=== PATIENT | female | born 1950 | race Caucasian/White ===

== ENCOUNTER 2017-09-23 07:13 | Inpatient (IN) | payer MEDICARE, BC ==
[2017-09-23] MEDS ORDERED: methylPREDNISolone SOD SUCCI 125 MG/2 ML VIAL IV STA (07:36)
[2017-09-23] MEDS ORDERED: SODIUM CHLORIDE 0.9% 500 ML IV STA (07:36)
[2017-09-23] MEDS ORDERED: ALBUTEROL NEBULIZED 2.5 MG/3 ML INHALATION STA (07:36)
--- NOTE | 2017-09-23 07:40 | ED ---
General Adult HPI - General Chief complaint: Shortness of Breath Stated complaint: SOB Time Seen by Provider: 09/23/17 07:13 Source: patient, RN notes reviewed Mode of arrival: wheelchair Limitations: no limitations - History of Present Illness Initial comments: This is a 67-year-old female who has a past medical history significant for asthma and continues to smoke. Patient comes in today stating she's had some difficulty breathing shortness of breath over the last few days. Patient states she's also coughing quite a bit. Patient states her has had similar symptoms. But his shortness of breath isn't as bad. Patient denies any chest pain just chest tightness. Patient states she's taken some realtors at home but they have not helped. Patient denies any known fever but she does feel warm. Patient denies any abdominal pain. Patient denies nausea vomiting diarrhea. Patient denies lightheadedness or dizziness. Patient denies any headache. Eyes any leg swelling or calf tenderness. - Related Data Home Medications Medication Instructions Recorded Confirmed Aspirin 2 tab PO DAILY 09/18/13 09/18/13 Fluticasone Propionate [Flonase] 2 spray EA NOSTRIL DAILY 09/18/13 09/18/13 Lovastatin [Mevacor] 40 mg PO DAILY 09/18/13 09/18/13 Montelukast Sodium [Singulair] 10 mg PO DAILY 09/18/13 09/19/13 PARoxetine HCL [Paxil] 20 mg PO DAILY 09/18/13 09/18/13 amLODIPine BESYLATE/BENAZEPRIL 1 each PO DAILY 09/18/13 09/18/13 [Amlodipine-Benazepril 5-20 mg] Allergies Allergy/AdvReac Type Severity Reaction Status Date / Time latex Allergy Rash/Hives Verified 09/23/17 07:18 peanut Allergy Unknown Verified 09/23/17 07:18 Penicillins Allergy Rash/Hives Verified 09/23/17 07:18 Sulfa (Sulfonamide Allergy Rash/Hives Verified 09/23/17 07:18 Antibiotics) brazil nuts Allergy Anaphylaxis Uncoded 09/23/17 07:18 Review of Systems ROS Statement: Those systems with pertinent positive or pertinent negative responses have been documented in the HPI. ROS Other: All systems not noted in ROS Statement are negative. Past Medical History Past Medical History: Cancer, Hyperlipidemia, Hypertension, Skin Disorder Additional Past Medical History / Comment(s): BREAST CA-2007,CAROTID STENOSIS History of Any Multi-Drug Resistant Organisms: None Reported Past Surgical History: Cholecystectomy Additional Past Surgical History / Comment(s): CAROTID ENDARTERECTOMY, LUMPECTOMY RT BREAST,ORIF RT ANKLE Past Anesthesia/Blood Transfusion Reactions: No Reported Reaction Past Psychological History: Anxiety Smoking Status: Current some day smoker Past Alcohol Use History: Rare Past Drug Use History: None Reported General Exam - General Exam Comments Initial Comments: GENERAL: Patient is well-developed and well-nourished. Patient is nontoxic and well- hydrated and is in mild distress. ENT: Neck is soft and supple. No significant lymphadenopathy is noted. Oropharynx is clear. Moist mucous membranes. Neck has full range of motion without eliciting any pain. EYES: The sclera were anicteric and conjunctiva were pink and moist. Extraocular movements were intact and pupils were equal round and reactive to light. Eyelids were unremarkable. PULMONARY: Patient is diffusely wheezing CARDIOVASCULAR: There is a regular rate and rhythm without any murmurs gallops or rubs. ABDOMEN: Soft and nontender with normal bowel sounds. No palpable organomegaly was noted. There is no palpable pulsatile mass. SKIN: Skin is clear with no lesions or rashes and otherwise unremarkable. NEUROLOGIC: Patient is alert and oriented x3. Cranial nerves II through XII are grossly intact. Motor and sensory are also intact. Normal speech, volume and content. Symmetrical smile. MUSCULOSKELETAL: Normal extremities with adequate strength and full range of motion. No lower extremity swelling or edema. No calf tenderness. LYMPHATICS: No significant lymphadenopathy is noted PSYCHIATRIC: Normal psychiatric evaluation. Limitations: no limitations Course Vital Signs 09/23/17 09/23/17 09/23/17 07:15 08:17 08:26 Temperature 98.3 F Pulse Rate 109 H 95 92 Respiratory 20 Rate Blood Pressure 146/63 O2 Sat by Pulse 89 L Oximetry Medical Decision Making - Medical Decision Making EKG shows normal sinus rhythm at 97 bpm DE interval 132 QRS is 84 QT interval 354 QTC is 449. Patient's EKG does show some ST segment depression slightly in the precordial leads V3 through V6 this was not seen on an old EKG. X-ray shows no acute abnormality. Patient got 2 breathing treatments consecutively but was still wheezing diffusely. Patient received Solu-Medrol 125 mg. I spoke with Dr. Perez I admitted the patient and I continued Solu-Medrol and albuterol the floor. Anytime the patient was off of oxygen patient did drop her pulse ox down into the mid 80s. - Lab Data Result diagrams: 09/23/17 07:51 09/23/17 07:51 Lab Results 09/23/17 09/23/17 09/23/17 Range/Units 07:51 07:51 07:51 WBC 9.9 (3.8-10.6) k/uL RBC 4.58 (3.80-5.40) m/uL Hgb 14.5 (11.4-16.0) gm/dL Hct 42.8 (34.0-46.0) % MCV 93.7 (80.0-100.0) fL MCH 31.6 (25.0-35.0) pg MCHC 33.7 (31.0-37.0) g/dL RDW 12.4 (11.5-15.5) % Plt Count 326 (150-450) k/uL Neutrophils % 82 % Lymphocytes % 6 % Monocytes % 5 % Eosinophils % 7 % Basophils % 1 % Neutrophils # 8.1 H (1.3-7.7) k/uL Lymphocytes # 0.6 L (1.0-4.8) k/uL Monocytes # 0.5 (0-1.0) k/uL Eosinophils # 0.7 (0-0.7) k/uL Basophils # 0.1 (0-0.2) k/uL PT (9.0-12.0) sec INR (<1.2) APTT (22.0-30.0) sec Sodium 148 H (137-145) mmol/L Potassium 4.6 (3.5-5.1) mmol/L Chloride 110 H (98-107) mmol/L Carbon Dioxide 22 (22-30) mmol/L Anion Gap 16 mmol/L BUN 10 (7-17) mg/dL Creatinine 0.58 (0.52-1.04) mg/dL Est GFR (CKD-EPI)AfAm >90 (>60 ml/min/1.73 sqM) Est GFR (CKD-EPI)NonAf >90 (>60 ml/min/1.73 sqM) Glucose 124 H (74-99) mg/dL Calcium 9.0 (8.4-10.2) mg/dL Magnesium 1.9 (1.6-2.3) mg/dL Total Bilirubin 0.5 (0.2-1.3) mg/dL AST 26 (14-36) U/L ALT 31 (9-52) U/L Alkaline Phosphatase 134 H (38-126) U/L Total Creatine Kinase 84 (30-135) U/L CK-MB (CK-2) 2.0 (0.0-2.4) ng/mL CK-MB (CK-2) Rel Index 2.4 Troponin I <0.012 (0.000-0.034) ng/mL Total Protein 6.7 (6.3-8.2) g/dL Albumin 4.1 (3.5-5.0) g/dL 09/23/17 Range/Units 07:51 WBC (3.8-10.6) k/uL RBC (3.80-5.40) m/uL Hgb (11.4-16.0) gm/dL Hct (34.0-46.0) % MCV (80.0-100.0) fL MCH (25.0-35.0) pg MCHC (31.0-37.0) g/dL RDW (11.5-15.5) % Plt Count (150-450) k/uL Neutrophils % % Lymphocytes % % Monocytes % % Eosinophils % % Basophils % % Neutrophils # (1.3-7.7) k/uL Lymphocytes # (1.0-4.8) k/uL Monocytes # (0-1.0) k/uL Eosinophils # (0-0.7) k/uL Basophils # (0-0.2) k/uL PT 9.6 (9.0-12.0) sec INR 1.0 (<1.2) APTT 19.8 L (22.0-30.0) sec Sodium (137-145) mmol/L Potassium (3.5-5.1) mmol/L Chloride (98-107) mmol/L Carbon Dioxide (22-30) mmol/L Anion Gap mmol/L BUN (7-17) mg/dL Creatinine (0.52-1.04) mg/dL Est GFR (CKD-EPI)AfAm (>60 ml/min/1.73 sqM) Est GFR (CKD-EPI)NonAf (>60 ml/min/1.73 sqM) Glucose (74-99) mg/dL Calcium (8.4-10.2) mg/dL Magnesium (1.6-2.3) mg/dL Total Bilirubin (0.2-1.3) mg/dL AST (14-36) U/L ALT (9-52) U/L Alkaline Phosphatase (38-126) U/L Total Creatine Kinase (30-135) U/L CK-MB (CK-2) (0.0-2.4) ng/mL CK-MB (CK-2) Rel Index Troponin I (0.000-0.034) ng/mL Total Protein (6.3-8.2) g/dL Albumin (3.5-5.0) g/dL Critical Care Time Critical Care Time: Yes Total Critical Care Time: 35 Disposition Clinical Impression: COPD with acute exacerbation Disposition: ADMITTED IP TO THIS HOSP Referrals: Radha Watkins DO [Primary Care Provider] - 1-2 days Time of Disposition: 09:13
[2017-09-23 08:04] LABS: Basophils # (A) 0.1 k/uL (0-0.2); Basophils % (A) 1 %; Eosinophils # (A) 0.7 k/uL (0-0.7); Eosinophils % (A) 7 %; HCT 42.8 % (34.0-46.0); HGB 14.5 gm/dL (11.4-16.0); Lymphocytes # (A) 0.6 k/uL (1.0-4.8); Lymphocytes % (A) 6 %; MCH 31.6 pg (25.0-35.0); MCHC 33.7 g/dL (31.0-37.0); MCV 93.7 fL (80.0-100.0); Mean Platelet Volume 6.9; Monocytes # (A) 0.5 k/uL (0-1.0); Monocytes % (A) 5 %; Neutrophils # (A) 8.1 k/uL (1.3-7.7); Neutrophils % (A) 82 %; Platelet Count 326 k/uL (150-450); RBC 4.58 m/uL (3.80-5.40); RDW 12.4 % (11.5-15.5); WBC 9.9 k/uL (3.8-10.6)
[2017-09-23 08:18] LABS: Albumin 4.1 g/dL (3.5-5.0); Anion Gap 16 mmol/L; Carbon Dioxide 22 mmol/L (22-30); Chloride 110 mmol/L (98-107); Glucose 124 mg/dL (74-99); Sodium 148 mmol/L (137-145); Total Bilirubin 0.5 mg/dL (0.2-1.3); Total Protein 6.7 g/dL (6.3-8.2)
[2017-09-23 08:22] LABS: ALT 31 U/L (9-52); AST 26 U/L (14-36); Alkaline Phosphatase 134 U/L (38-126); Blood Urea Nitrogen 10 mg/dL (7-17); Magnesium 1.9 mg/dL (1.6-2.3); Potassium 4.6 mmol/L (3.5-5.1)
--- NOTE | 2017-09-23 08:24 | XR ---
EXAMINATION TYPE: XR chest 2V DATE OF EXAM: 09/23/2017 HISTORY: difficulty breathing. REFERENCE: NONE. FINDINGS: The heart is minimally enlarged. The lungs are clear. Pleural spaces are clear. IMPRESSION: MILD CARDIOMEGALY.
[2017-09-23 08:36] LABS: Prothrombin Time 9.6 sec (9.0-12.0)
[2017-09-23 08:37] LABS: Creatine Kinase 84 U/L (30-135)
[2017-09-23 08:39] LABS: Partial Thromboplastin Time 19.8 sec (22.0-30.0)
[2017-09-23 08:49] LABS: Troponin I <0.012 ng/mL (0.000-0.034)
[2017-09-23] MEDS: hydrALAZINE HCL 20 MG/ML 1 ML VIAL IVP STA ×2 (09:42→11:00)
[2017-09-23] MEDS: ACETAMINOPHEN TAB 325 MG TAB PO PRN (11:54)
[2017-09-23] MEDS: methylPREDNISolone SOD SUCCI 125 MG/2 ML VIAL IV SCH ×2 (11:55→18:17)
[2017-09-23 12:14] VITALS: BMI 35.6
[2017-09-23] MEDS: IPRATROPIUM-ALBUTEROL 3 ML NEB INHALATION PRN ×3 (12:34→20:09)
--- NOTE | 2017-09-23 16:38 | P.HPIM ---
History of Present Illness H&P Date: 09/23/17 Chief Complaint: Shortness of breath Anthony Llamas is a 67-year-old female patient of [facility] who presented to [facility] emergency room with a chief complaint of worsening shortness of breath, patient was having wheezing and cough for the last several days she used her inhaler without significant relief her symptoms were worsening and she decided to come to emergency room. Patient has a known history of asthma, she was also recently diagnosed with COPD, she is a smoker, she states she never smoked as a teenager she started smoking when she started working, she quit smoking when she was having her children, she was smoking up until a few days ago, she has history of chronic sinusitis was previous history of sinus surgery, she denies any previous history of pneumonia. Patient denies any other medical problems she denies having any history of cardiac disease, no history of CHF or coronary artery disease. Past Medical History Past Medical History: Cancer, Hyperlipidemia, Hypertension, Skin Disorder Additional Past Medical History / Comment(s): BREAST CA-2006,CAROTID STENOSIS History of Any Multi-Drug Resistant Organisms: None Reported Past Surgical History: Cholecystectomy Additional Past Surgical History / Comment(s): CAROTID ENDARTERECTOMY, LUMPECTOMY RT BREAST,ORIF RT ANKLE Past Anesthesia/Blood Transfusion Reactions: No Reported Reaction Past Psychological History: Anxiety Smoking Status: Former smoker Past Alcohol Use History: Rare Past Drug Use History: None Reported - Past Family History Daughter(s) Family Medical History: Cancer Father Family Medical History: Congestive Heart Failure (CHF) Medications and Allergies Home Medications Medication Instructions Recorded Confirmed Type Aspirin 325 mg PO DAILY@159909/18/13 09/23/17 History Fluticasone Propionate [Flonase] 2 spray EA NOSTRIL DAILY 09/18/13 09/23/17 History PARoxetine HCL [Paxil] 20 mg PO DAILY@159909/18/13 09/23/17 History amLODIPine BESYLATE/BENAZEPRIL 1 cap PO DAILY@159909/18/13 09/23/17 History [Amlodipine-Benazepril 5-20 mg] Albuterol Sulfate [Proair Hfa] 1 - 2 puff INHALATION RT-Q6H PRN 09/23/17 History Atorvastatin [Lipitor] 80 mg PO DAILY@159909/23/17 09/23/17 History Loratadine [Claritin] 10 mg PO DAILY@1600 09/23/17 09/23/17 History busPIRone HCL 10 mg PO DAILY@1600 09/23/17 09/23/17 History Allergies Allergy/AdvReac Type Severity Reaction Status Date / Time latex Allergy Rash/Hives Verified 09/23/17 11:36 Penicillins Allergy Rash/Hives Verified 09/23/17 11:36 Sulfa (Sulfonamide Allergy Rash/Hives Verified 09/23/17 11:36 Antibiotics) brazil nuts Allergy Anaphylaxis Uncoded 09/23/17 09:32 Physical Exam Vitals: Vital Signs Temp Pulse Pulse Resp BP BP Pulse Ox 09/23/17 15:48 102 H 09/23/17 15:36 100 09/23/17 14:26 98.5 F 100 18 143/66 95 09/23/17 12:45 103 H 09/23/17 12:34 103 H 93 L 09/23/17 11:25 98.7 F 106 H 18 174/80 92 L 09/23/17 10:12 98.8 F 98 18 137/64 98 09/23/17 09:38 100 20 173/83 98 09/23/17 09:26 97 18 166/72 97 09/23/17 08:26 92 09/23/17 08:17 95 09/23/17 07:15 98.3 F 109 H 20 146/63 89 L Intake and Output 09/23/17 09/23/17 09/23/17 06:59 14:59 22:59 Other: Weight 91.399 kg In general patient is alert and oriented 3 in no apparent distress HEENT head normocephalic and atraumatic Neck is supple no JVD no goiter no lymphadenopathy Chest exam reveals a few scattered crackles wheezes and expiratory wheezing Cardiac exam reveals regular heart sounds no gallops no murmurs Abdomen is soft nontender no organomegaly with normal bowel sounds Extremity exam reveals no edema no cyanosis or clubbing Results CBC & Chem 7: 09/23/17 07:51 09/23/17 07:51 Labs: Abnormal Lab Results - Last 24 Hours (Table) 09/23/17 09/23/17 09/23/17 Range/Units 07:51 07:51 07:51 Neutrophils # 8.1 H (1.3-7.7) k/uL Lymphocytes # 0.6 L (1.0-4.8) k/uL APTT 19.8 L (22.0-30.0) sec Sodium 148 H (137-145) mmol/L Chloride 110 H (98-107) mmol/L Glucose 124 H (74-99) mg/dL Alkaline Phosphatase 134 H (38-126) U/L Thrombosis Risk Factor Assmnt - Choose All That Apply Any of the Below Risk Factors Present?: Yes Each Factor Represents 1 point: Abnormal pulmonary function (COPD) Each Risk Factor Represents 2 Points: Age 61-74 years Thrombosis Risk Factor Assessment Total Risk Factor Score: 3 Thrombosis Risk Factor Assessment Level: Moderate Risk Assessment and Plan Plan: #1 acute asthma exacerbation #2 acute exacerbation of chronic obstructive pulmonary disease #3 tobacco abuse, patient was counseled to quit #4 acute purulent bronchitis #5 underlying history of hyperlipidemia #6 underlying history of depression and anxiety #7 underlying history of hypertension #8 for DVT prophylaxis patient will be started on Lovenox 40 mg subcu, for GI prophylaxis she will be started on Pepcid Home medications reviewed and reordered Continue IV steroids, add IV Rocephin Will follow in a.m.
[2017-09-23] MEDS: AZITHROMYCIN 500 MG in SODIUM CHLORIDE 0.9% 250 ML IVPB SCH (18:16)
[2017-09-23] MEDS: ENOXAPARIN 40 MG/0.4 ML SYRINGE SQ SCH (18:17)
[2017-09-23] MEDS: FAMOTIDINE 20 MG TAB PO SCH (18:17)
[2017-09-24] MEDS: IPRATROPIUM-ALBUTEROL 3 ML NEB INHALATION PRN ×5 (00:15→19:31)
[2017-09-24] MEDS: methylPREDNISolone SOD SUCCI 125 MG/2 ML VIAL IV SCH ×5 (06:09→23:35)
[2017-09-24] MEDS: FLUTICASONE 50MCG/SPRAY NASAL 16GM EA NOSTRIL SCH (07:31)
[2017-09-24] MEDS: ENOXAPARIN 40 MG/0.4 ML SYRINGE SQ SCH (07:31)
[2017-09-24] MEDS: FAMOTIDINE 20 MG TAB PO SCH (07:31)
[2017-09-24] MEDS: AZITHROMYCIN 500 MG in SODIUM CHLORIDE 0.9% 250 ML IVPB SCH (07:31)
[2017-09-24 07:57] LABS: Basophils % (A) 0 %; Eosinophils % (A) 0 %; HCT 40.2 % (34.0-46.0); Lymphocytes # (A) 0.8 k/uL (1.0-4.8); Lymphocytes % (A) 5 %; MCH 30.3 pg (25.0-35.0); MCHC 32.3 g/dL (31.0-37.0); MCV 93.9 fL (80.0-100.0); Mean Platelet Volume 7.2; Monocytes # (A) 0.7 k/uL (0-1.0); Monocytes % (A) 4 %; Neutrophils % (A) 90 %; Platelet Count 386 k/uL (150-450); RBC 4.28 m/uL (3.80-5.40); RDW 12.5 % (11.5-15.5); WBC 16.6 k/uL (3.8-10.6)
[2017-09-24 08:12] LABS: ALT 30 U/L (9-52); AST 20 U/L (14-36); Albumin 3.7 g/dL (3.5-5.0); Alkaline Phosphatase 103 U/L (38-126); Anion Gap 14 mmol/L; Blood Urea Nitrogen 19 mg/dL (7-17); Calcium 9.5 mg/dL (8.4-10.2); Carbon Dioxide 21 mmol/L (22-30); Chloride 107 mmol/L (98-107); Glucose 122 mg/dL (74-99); Potassium 4.4 mmol/L (3.5-5.1); Sodium 142 mmol/L (137-145); Total Bilirubin 0.2 mg/dL (0.2-1.3); Total Protein 6.3 g/dL (6.3-8.2)
--- NOTE | 2017-09-24 12:39 | P.CNPUL ---
History of Present Illness Consult date: 09/24/17 Reason for consult: dyspnea, cough, COPD, hypoxemia Chief complaint: Shortness of breath History of present illness: Pulmonary consultation dated 09/24/2017 67-year-old female with a history of some significant tobacco use. The patient sees Dr. Radha Watkins as a primary. The patient has never seen a lung doctor has no diagnosis of chronic lung disease. She is a heavy smoker. Likely she does have COPD. The patient is on aspirin Flonase nasal spray Mevacor Singulair Paxil and a amlodipine/benazepril combination. The patient comes to the ER with complaints of increasing shortness of breath chest tightness wheezing and cough. Coughing up some phlegm. Very very short of breath. Very congested. The going on for at least 3 or 4 days prior to admission. Denies any fever or chills. No nausea vomiting or diarrhea. No chest pain or chest discomfort. Review of Systems A 12 point review of system is positive for shortness of breath chest tightness wheezing cough chest congestion and mild phlegm production. Past Medical History Past Medical History: Cancer, Hyperlipidemia, Hypertension, Skin Disorder Additional Past Medical History / Comment(s): BREAST CA-2006,CAROTID STENOSIS History of Any Multi-Drug Resistant Organisms: None Reported Past Surgical History: Cholecystectomy Additional Past Surgical History / Comment(s): CAROTID ENDARTERECTOMY, LUMPECTOMY RT BREAST,ORIF RT ANKLE Past Anesthesia/Blood Transfusion Reactions: No Reported Reaction Past Psychological History: Anxiety Smoking Status: Former smoker Past Alcohol Use History: Rare Past Drug Use History: None Reported - Past Family History Daughter(s) Family Medical History: Cancer Father Family Medical History: Congestive Heart Failure (CHF) Medications and Allergies Home Medications Medication Instructions Recorded Confirmed Type Aspirin 325 mg PO DAILY@159909/18/13 09/23/17 History Fluticasone Propionate [Flonase] 2 spray EA NOSTRIL DAILY 09/18/13 09/23/17 History PARoxetine HCL [Paxil] 20 mg PO DAILY@159909/18/13 09/23/17 History amLODIPine BESYLATE/BENAZEPRIL 1 cap PO DAILY@159909/18/13 09/23/17 History [Amlodipine-Benazepril 5-20 mg] Albuterol Sulfate [Proair Hfa] 1 - 2 puff INHALATION RT-Q6H PRN 05/05/18 05/05/ 18 History Atorvastatin [Lipitor] 80 mg PO DAILY@1600 09/23/17 09/23/17 History Loratadine [Claritin] 10 mg PO DAILY@1600 09/23/17 09/23/17 History busPIRone HCL 10 mg PO DAILY@1600 09/23/17 09/23/17 History Allergies Allergy/AdvReac Type Severity Reaction Status Date / Time latex Allergy Rash/Hives Verified 09/23/17 11:36 Penicillins Allergy Rash/Hives Verified 09/23/17 11:36 Sulfa (Sulfonamide Allergy Rash/Hives Verified 09/23/17 11:36 Antibiotics) brazil nuts Allergy Anaphylaxis Uncoded 09/23/17 09:32 Physical Exam Osteopathic Statement: *. No significant issues noted on an osteopathic structural exam other than those noted in the History and Physical/Consult. Vitals: Vital Signs Temp Pulse Pulse Resp BP Pulse Ox 09/24/17 10:17 115 H 84 L 09/24/17 10:16 98 95 09/24/17 08:27 102 H 09/24/17 08:17 98 98 09/24/17 06:52 98.4 F 92 18 123/63 94 L 09/24/17 00:27 103 H 09/24/17 00:17 101 H 09/23/17 23:55 18 09/23/17 23:00 98.3 F 82 18 143/84 96 09/23/17 20:22 102 H 09/23/17 20:10 101 H 09/23/17 15:48 102 H 09/23/17 15:36 100 09/23/17 14:26 98.5 F 100 18 143/66 95 09/23/17 12:45 103 H 09/23/17 12:34 103 H 93 L Intake and Output 09/23/17 09/24/17 09/24/17 22:59 06:59 14:59 Intake Total 970 Balance 970 Intake: Intake, IV Titration 250 Amount Azithromycin 500 mg In 250 Sodium Chloride 0.9% 250 ml @ 125 mls/hr IVPB DAILY [facility] Rx#:[id number] Oral 720 Other: Voiding Method Toilet Toilet # Voids 1 Weight 91.399 kg No acute distress, oriented 3. The patient is emotional, nasal O2 in place. HEENT examination is grossly unremarkable. Mucous membranes are moist. No oral lesions. Neck supple. Full range of motion. No adenopathy thyromegaly or neck vein distention. Cardiovascular examination reveals regular rhythm rate. S1-S2 normal. No S3 or S4. No discernible murmur noted. Lungs reveal diffuse bilateral expiratory wheezes. Breath sounds are diminished. There is prolongation on forced maneuver. Abdomen soft bowel sounds are heard. No masses or tenderness. Extremities are intact. No cyanosis clubbing or edema. Skin is without rash or lesion. Neurologic examination is brief but nonfocal. Results - Laboratory Findings CBC and BMP: 09/24/17 07:20 09/24/17 07:20 PT/INR, D-dimer PT 9.6 sec (9.0-12.0) 09/23/17 07:51 INR 1.0 (<1.2) 09/23/17 07:51 Abnormal lab findings: Abnormal Labs 09/23/17 09/23/17 09/23/17 07:51 07:51 07:51 WBC Neutrophils # 8.1 H Lymphocytes # 0.6 L APTT 19.8 L Sodium 148 H Chloride 110 H Carbon Dioxide BUN Glucose 124 H Alkaline Phosphatase 134 H 09/24/17 09/24/17 07:20 07:20 WBC 16.6 H Neutrophils # 15.0 H Lymphocytes # 0.8 L APTT Sodium Chloride Carbon Dioxide 21 L BUN 19 H Glucose 122 H Alkaline Phosphatase - Diagnostic Findings Chest x-ray: image reviewed (Labs x-rays and medications are reviewed.) Assessment and Plan Assessment: Assessment COPD exacerbation complicated by purulent tracheobronchitis. Chest x-ray is clear for any acute infiltrate. There is mild cardiomegaly. History of heavy tobacco use and nicotine addiction. The patient stopped smoking one week ago. History of hyperlipidemia History of hypertension Previous carotid endarterectomy. Carotid artery stenosis History of breast cancer, 2007 Status post lumpectomy Plan: Plan dated 09/24/2017 The patient's medications are reviewed. We'll make sure that she is on appropriate medications for her COPD exacerbation. In addition, we'll make sure she is on systemic corticosteroids a long-acting beta agonist and inhaled corticosteroids. In addition a short acting beta agonists in short acting muscarinic antagonist would be appropriate. An oral antibiotic would also be appropriate. We'll continue to follow. She'll need outpatient evaluation with a PFT. I did give her my number. Time with Patient: Greater than 30
--- NOTE | 2017-09-24 13:25 | P.PN ---
Subjective Progress Note Date: 09/24/17 Anthony Llamas is a 67-year-old female patient of [facility] who presented to [facility] emergency room with a chief complaint of worsening shortness of breath, patient was having wheezing and cough for the last several days she used her inhaler without significant relief her symptoms were worsening and she decided to come to emergency room. Patient has a known history of asthma, she was also recently diagnosed with COPD, she is a smoker, she states she never smoked as a teenager she started smoking when she started working, she quit smoking when she was having her children, she was smoking up until a few days ago, she has history of chronic sinusitis was previous history of sinus surgery, she denies any previous history of pneumonia. Patient denies any other medical problems she denies having any history of cardiac disease, no history of CHF or coronary artery disease. On 09/24/2017 patient is alert and oriented 3 in no apparent distress she reports improvement in her shortness of breath and cough, she is complaining of feeling jittery and unable to sleep, she denies any fever or chills no headache no dizziness no chest pain no nausea or vomiting no abdominal pain no diarrhea and no urinary symptoms. Objective - Vital Signs Vital signs: Vital Signs Temp 98.4 F 09/24/17 06:52 Pulse 102 H 09/24/17 13:05 Resp 18 09/24/17 06:52 BP 123/63 09/24/17 06:52 Pulse Ox 84 L 09/24/17 10:17 Intake & Output 09/23/17 09/24/17 09/24/17 18:59 06:59 18:59 Intake Total 970 Balance 970 Weight 91.399 kg 91.399 kg Intake: Intake, IV Titration 250 Amount Azithromycin 500 mg In 250 Sodium Chloride 0.9% 250 ml @ 125 mls/hr IVPB DAILY [facility] Rx#:[id number] Oral 720 Other: Voiding Method Toilet Toilet Toilet # Voids 3 1 - Exam In general patient is alert and oriented 3 in no apparent distress HEENT head normocephalic and atraumatic Neck is supple no JVD no goiter no lymphadenopathy Chest exam reveals a few scattered crackles wheezes and expiratory wheezing Cardiac exam reveals regular heart sounds no gallops no murmurs Abdomen is soft nontender no organomegaly with normal bowel sounds Extremity exam reveals no edema no cyanosis or clubbing - Labs CBC & Chem 7: 09/24/17 07:20 09/24/17 07:20 Labs: Abnormal Lab Results - Last 24 Hours (Table) 09/24/17 09/24/17 Range/Units 07:20 07:20 WBC 16.6 H (3.8-10.6) k/uL Neutrophils # 15.0 H (1.3-7.7) k/uL Lymphocytes # 0.8 L (1.0-4.8) k/uL Carbon Dioxide 21 L (22-30) mmol/L BUN 19 H (7-17) mg/dL Glucose 122 H (74-99) mg/dL Microbiology - Last 24 Hours (Table) 09/23/17 07:51 Blood Culture - Preliminary Blood No Growth after 24 hours Assessment and Plan Plan: #1 acute asthma exacerbation #2 acute exacerbation of chronic obstructive pulmonary disease #3 tobacco abuse, patient was counseled to quit #4 acute purulent bronchitis #5 underlying history of hyperlipidemia #6 underlying history of depression and anxiety #7 underlying history of hypertension #8 for DVT prophylaxis patient will be started on Lovenox 40 mg subcu, for GI prophylaxis she will be started on Pepcid Home medications reviewed and reordered Continue IV steroids, patient is ALLERGIC to penicillin she was started on Zithromax Will follow in a.m.
[2017-09-24] MEDS: ACETAMINOPHEN TAB 325 MG TAB PO PRN (15:00)
[2017-09-24] MEDS: busPIRone HCl 10 MG TAB PO SCH (15:04)
[2017-09-24] MEDS: ATORVASTATIN 80 MG TAB PO SCH (15:04)
[2017-09-24] MEDS: amLODIPine 5 MG TAB PO SCH (15:04)
[2017-09-24] MEDS: ASPIRIN 325 MG TAB PO SCH (15:04)
[2017-09-24] MEDS: LISINOPRIL 20 MG TAB PO SCH (15:04)
[2017-09-24] MEDS: LORATADINE 10 MG TAB PO SCH (15:05)
[2017-09-24] MEDS: PARoxetine 20 MG TAB PO SCH (15:05)
[2017-09-24] MEDS ORDERED: BENAZEPRIL PO SCH (16:00)
[2017-09-24] MEDS ORDERED: [UNRECOGNIZED DRUG - OTHER] PO SCH (16:00)
[2017-09-24] MEDS ORDERED: AMLODIPINE BESYLATE PO SCH (16:00)
[2017-09-24 16:53] LABS: Glucose,Whole Blood 158 mg/dL (75-99)
[2017-09-24] MEDS: INSULIN ASPART 100 UNIT/ML 1 ML 10 ML VIAL SQ SCH ×2 (17:40→20:14)
[2017-09-24] MEDS: BUDESONIDE 1 MG/2 ML NEBU INHALATION SCH (19:31)
[2017-09-24] MEDS: FORMOTEROL FUMARATE 20 MCG/2 ML NEBU INHALATION SCH (19:31)
[2017-09-24 20:05] LABS: Glucose,Whole Blood 174 mg/dL (75-99)
[2017-09-24] MEDS: ALPRAZolam 0.25 MG TAB PO PRN (20:18)
[2017-09-25] MEDS: methylPREDNISolone SOD SUCCI 125 MG/2 ML VIAL IV SCH ×3 (05:59→18:20)
[2017-09-25 06:48] LABS: Glucose,Whole Blood 136 mg/dL (75-99)
[2017-09-25] MEDS: FORMOTEROL FUMARATE 20 MCG/2 ML NEBU INHALATION SCH ×2 (07:12→21:00)
[2017-09-25] MEDS: IPRATROPIUM-ALBUTEROL 3 ML NEB INHALATION PRN ×2 (07:12→11:10)
[2017-09-25] MEDS: BUDESONIDE 1 MG/2 ML NEBU INHALATION SCH ×2 (07:12→21:00)
[2017-09-25] MEDS: ENOXAPARIN 40 MG/0.4 ML SYRINGE SQ SCH (08:33)
[2017-09-25] MEDS: FLUTICASONE 50MCG/SPRAY NASAL 16GM EA NOSTRIL SCH (08:34)
[2017-09-25] MEDS: FAMOTIDINE 20 MG TAB PO SCH (08:34)
[2017-09-25] MEDS: AZITHROMYCIN 500 MG TAB PO SCH (08:34)
[2017-09-25] MEDS: ACETAMINOPHEN TAB 325 MG TAB PO PRN ×2 (08:37→15:12)
[2017-09-25] MEDS: INSULIN ASPART 100 UNIT/ML 1 ML 10 ML VIAL SQ SCH ×4 (08:39→20:05)
[2017-09-25 10:13] LABS: Basophils % (A) 0 %; Eosinophils % (A) 0 %; HCT 39.9 % (34.0-46.0); HGB 13.2 gm/dL (11.4-16.0); Lymphocytes # (A) 0.7 k/uL (1.0-4.8); Lymphocytes % (A) 5 %; MCH 31.3 pg (25.0-35.0); MCHC 33.1 g/dL (31.0-37.0); MCV 94.6 fL (80.0-100.0); Mean Platelet Volume 6.6; Monocytes # (A) 0.4 k/uL (0-1.0); Monocytes % (A) 2 %; Neutrophils # (A) 15.1 k/uL (1.3-7.7); Neutrophils % (A) 93 %; Platelet Count 408 k/uL (150-450); RBC 4.22 m/uL (3.80-5.40); RDW 12.7 % (11.5-15.5); WBC 16.2 k/uL (3.8-10.6)
[2017-09-25 10:27] LABS: ALT 36 U/L (9-52); AST 27 U/L (14-36); Albumin 3.6 g/dL (3.5-5.0); Alkaline Phosphatase 92 U/L (38-126); Anion Gap 13 mmol/L; Blood Urea Nitrogen 18 mg/dL (7-17); Calcium 9.2 mg/dL (8.4-10.2); Carbon Dioxide 26 mmol/L (22-30); Chloride 104 mmol/L (98-107); Glucose 198 mg/dL (74-99); Potassium 4.4 mmol/L (3.5-5.1); Sodium 143 mmol/L (137-145); Total Bilirubin 0.2 mg/dL (0.2-1.3); Total Protein 6.1 g/dL (6.3-8.2)
[2017-09-25 11:11] LABS: Glucose,Whole Blood 149 mg/dL (75-99)
--- NOTE | 2017-09-25 12:08 | P.PN ---
Subjective Progress Note Date: 09/25/17 Anthony Llamas is a 67-year-old female patient of [facility] who presented to [facility] emergency room with a chief complaint of worsening shortness of breath, patient was having wheezing and cough for the last several days she used her inhaler without significant relief her symptoms were worsening and she decided to come to emergency room. Patient has a known history of asthma, she was also recently diagnosed with COPD, she is a smoker, she states she never smoked as a teenager she started smoking when she started working, she quit smoking when she was having her children, she was smoking up until a few days ago, she has history of chronic sinusitis was previous history of sinus surgery, she denies any previous history of pneumonia. Patient denies any other medical problems she denies having any history of cardiac disease, no history of CHF or coronary artery disease. On 09/24/2017 patient is alert and oriented 3 in no apparent distress she reports improvement in her shortness of breath and cough, she is complaining of feeling jittery and unable to sleep, she denies any fever or chills no headache no dizziness no chest pain no nausea or vomiting no abdominal pain no diarrhea and no urinary symptoms. 09/25/2017 patient is having improvement in her shortness of breath and cough. She is still having some shortness of breath with activity. She did have a coughing jag through the evening. Denies any chest pain. Denies any nausea or vomiting. Reports having bowel movements. Denies any difficulty urinating. She is still requiring oxygen 2 L at 93% Objective - Vital Signs Vital signs: Vital Signs Temp 96.8 F L 09/25/17 07:12 Pulse 97 09/25/17 11:22 Resp 18 09/25/17 07:15 BP 134/73 09/25/17 07:12 Pulse Ox 89 L 09/25/17 10:45 Intake & Output 09/24/17 09/25/17 09/25/17 18:59 06:59 18:59 Other: Voiding Method Toilet Toilet Toilet # Voids 3 1 # Bowel Movements 1 - Exam Head normocephalic Neck supple Lungs wheezing left upper lobe and anterior chest Heart regular rate and rhythm S1-S2, no rub or gallop Abdomen is soft nontender nondistended positive bowel sounds no hepatosplenomegaly Extremities no edema Neuro alert and orientated to 3 - Labs CBC & Chem 7: 09/25/17 09:42 09/25/17 09:42 Labs: Abnormal Lab Results - Last 24 Hours (Table) 09/24/17 09/24/17 09/25/17 Range/Units 16:49 20:03 06:43 WBC (3.8-10.6) k/uL Neutrophils # (1.3-7.7) k/uL Lymphocytes # (1.0-4.8) k/uL BUN (7-17) mg/dL Glucose (74-99) mg/dL POC Glucose (mg/dL) 158 H 174 H 136 H (75-99) mg/dL Total Protein (6.3-8.2) g/dL 09/25/17 09/25/17 09/25/17 Range/Units 09:42 09:42 11:08 WBC 16.2 H (3.8-10.6) k/uL Neutrophils # 15.1 H (1.3-7.7) k/uL Lymphocytes # 0.7 L (1.0-4.8) k/uL BUN 18 H (7-17) mg/dL Glucose 198 H (74-99) mg/dL POC Glucose (mg/dL) 149 H (75-99) mg/dL Total Protein 6.1 L (6.3-8.2) g/dL Microbiology - Last 24 Hours (Table) 09/23/17 07:51 Blood Culture - Preliminary Blood No Growth after 48 hours Assessment and Plan Assessment: #1 acute COPD exacerbation: Continue IV Solu-Medrol. Pulmonary service following they have added Pulmicort and Perforomist nebulizer treatments. Also will change DuoNeb nebs to 4 times a day and as needed #2 acute tracheobronchitis: Continue azithromycin. Patient has ALLERGY to penicillin #3 tobacco abuse, patient was counseled to quit #4 leukocytosis likely secondary to steroids #5 underlying history of hyperlipidemia #6 underlying history of depression and anxiety #7 underlying history of hypertension #8 for DVT prophylaxis patient will be started on Lovenox 40 mg subcu, for GI prophylaxis she will be started on Pepcid Encouraged patient to increase activity I performed an examination of the patient and discussed their management with the physician Patient Transport Officer. I have reviewed the Physician Patient Transport Officer's notes and agree with the documented findings and plan of care
--- NOTE | 2017-09-25 15:40 | P.PN ---
Subjective Progress Note Date: 09/25/17 This 67-year-old female patient is being seen in an effort follow-up in regards to her acute COPD exacerbation. She is feeling better. She is less short of breath. Cough has subsided. Less congested than less bronchospastic and less wheezy. As mentioned earlier she is a smoker in she seems to be committed for smoking cessation. She is still on oxygen at 2 L/m nasal cannula with a pulse ox of 93%. She is ambulating. No pleurisy. No hemoptysis. She has history of hayfever and chronic ALLERGIC bronchial asthma at the younger age. Nevertheless his condition seems to be more consistent with COPD. Objective - Vital Signs Vital signs: Vital Signs Temp 98.4 F 09/25/17 14:18 Pulse 94 09/25/17 14:18 Resp 20 09/25/17 14:18 BP 174/75 09/25/17 14:18 Pulse Ox 96 09/25/17 14:18 Intake & Output 09/24/17 09/25/17 09/25/17 18:59 06:59 18:59 Other: Voiding Method Toilet Toilet Toilet # Voids 3 1 3 # Bowel Movements 1 - Exam Gen. appearance the patient is calm and comfortable likely distress, obese, able to speak of. This is Head exam was generally normal. There was no scleral icterus or corneal arcus. Mucous membranes were moist. Neck was supple and without jugular venous distension, thyromegaly, or carotid bruits. Carotids were easily palpable bilaterally. There was no adenopathy. The patient is Mallampati class IV is significant crowding of the posterior pharynx Lungs sounds are diminished bilaterally along with some scattered expiratory wheezes heard throughout the lung yañez Cardiac exam revealed the PMI to be normally situated and sized. The rhythm was regular and no extrasystoles were noted during several minutes of auscultation. The first and second heart sounds were normal and physiologic splitting of the second heart sound was noted. There were no murmurs, rubs, clicks, or gallops. Abdominal exam revealed normal bowel sounds. The abdomen was soft, non-tender, and without masses, organomegaly, or appreciable enlargement of the abdominal aorta. Examination of the extremities revealed easily palpable radial, femoral and pedal pulses. There was no cyanosis, clubbing or edema. Examination of the skin revealed no evidence of significant rashes, suspicious appearing nevi or other concerning lesions. Neurologically the patient is awake and alert and there is no focal neurological deficit Psychiatrically the patient has normal mood and affect - Labs CBC & Chem 7: 09/25/17 09:42 09/25/17 09:42 Labs: Abnormal Lab Results - Last 24 Hours (Table) 09/24/17 09/24/17 09/25/17 Range/Units 16:49 20:03 06:43 WBC (3.8-10.6) k/uL Neutrophils # (1.3-7.7) k/uL Lymphocytes # (1.0-4.8) k/uL BUN (7-17) mg/dL Glucose (74-99) mg/dL POC Glucose (mg/dL) 158 H 174 H 136 H (75-99) mg/dL Total Protein (6.3-8.2) g/dL 09/25/17 09/25/17 09/25/17 Range/Units 09:42 09:42 11:08 WBC 16.2 H (3.8-10.6) k/uL Neutrophils # 15.1 H (1.3-7.7) k/uL Lymphocytes # 0.7 L (1.0-4.8) k/uL BUN 18 H (7-17) mg/dL Glucose 198 H (74-99) mg/dL POC Glucose (mg/dL) 149 H (75-99) mg/dL Total Protein 6.1 L (6.3-8.2) g/dL Microbiology - Last 24 Hours (Table) 09/23/17 07:51 Blood Culture - Preliminary Blood No Growth after 48 hours Assessment and Plan Plan: 1 acute COPD exacerbation, improving slowly and the patient continues to have some residual cough dyspnea and wheeze 2 acute taken bronchitis with exacerbation of an underlying COPD 3 smoker 4 hyperlipidemia 5 depression 6 anxiety 7 hypertension 8 mild leukocytosis Plan Clinically improving. Continue same treatment. Anticipate further recovered over the next 24 hours. Continued IV Solu Medrol for another 24 hours and taper to prednisone within next 24 hours. We'll continue to follow. Smoking cessation counseling was done. We'll need an outpatient Pulmicort function testing and further adjustments on her maintenance inhalers.
[2017-09-25] MEDS: busPIRone HCl 10 MG TAB PO SCH (16:50)
[2017-09-25] MEDS: ASPIRIN 325 MG TAB PO SCH ×2 (16:50→16:51)
[2017-09-25] MEDS: PARoxetine 20 MG TAB PO SCH (16:50)
[2017-09-25] MEDS: LISINOPRIL 20 MG TAB PO SCH (16:51)
[2017-09-25] MEDS: ATORVASTATIN 80 MG TAB PO SCH (16:51)
[2017-09-25] MEDS: LORATADINE 10 MG TAB PO SCH (16:51)
[2017-09-25] MEDS: IPRATROPIUM-ALBUTEROL 3 ML NEB INHALATION SCH ×2 (16:56→21:00)
[2017-09-25 17:18] LABS: Glucose,Whole Blood 130 mg/dL (75-99)
[2017-09-25] MEDS: amLODIPine 5 MG TAB PO SCH (18:20)
[2017-09-25 20:02] LABS: Glucose,Whole Blood 250 mg/dL (75-99)
[2017-09-25] MEDS: ALPRAZolam 0.25 MG TAB PO PRN (20:06)
[2017-09-26] MEDS: methylPREDNISolone SOD SUCCI 125 MG/2 ML VIAL IV SCH ×4 (00:05→18:07)
[2017-09-26] MEDS: IPRATROPIUM-ALBUTEROL 3 ML NEB INHALATION PRN (00:54)
[2017-09-26 07:23] LABS: Glucose,Whole Blood 147 mg/dL (75-99)
[2017-09-26 07:35] LABS: Basophils % (A) 0 %; Eosinophils # (A) 0.1 k/uL (0-0.7); Eosinophils % (A) 0 %; HCT 39.7 % (34.0-46.0); HGB 12.6 gm/dL (11.4-16.0); Lymphocytes % (A) 7 %; MCH 30.2 pg (25.0-35.0); MCHC 31.7 g/dL (31.0-37.0); MCV 95.1 fL (80.0-100.0); Mean Platelet Volume 6.9; Monocytes # (A) 0.4 k/uL (0-1.0); Monocytes % (A) 3 %; Neutrophils # (A) 12.6 k/uL (1.3-7.7); Neutrophils % (A) 90 %; Platelet Count 412 k/uL (150-450); RBC 4.17 m/uL (3.80-5.40); RDW 12.8 % (11.5-15.5); WBC 14.1 k/uL (3.8-10.6)
[2017-09-26] MEDS: INSULIN ASPART 100 UNIT/ML 1 ML 10 ML VIAL SQ SCH ×4 (07:36→21:06)
[2017-09-26] MEDS: FAMOTIDINE 20 MG TAB PO SCH (07:36)
[2017-09-26] MEDS: AZITHROMYCIN 500 MG TAB PO SCH (07:36)
[2017-09-26] MEDS: ENOXAPARIN 40 MG/0.4 ML SYRINGE SQ SCH (07:37)
[2017-09-26] MEDS: FLUTICASONE 50MCG/SPRAY NASAL 16GM EA NOSTRIL SCH (07:37)
[2017-09-26] MEDS: IPRATROPIUM-ALBUTEROL 3 ML NEB INHALATION SCH ×4 (08:09→21:31)
[2017-09-26] MEDS: FORMOTEROL FUMARATE 20 MCG/2 ML NEBU INHALATION SCH ×2 (08:09→21:31)
[2017-09-26] MEDS: BUDESONIDE 1 MG/2 ML NEBU INHALATION SCH ×2 (08:09→21:31)
[2017-09-26 08:25] LABS: Anion Gap 13 mmol/L; Blood Urea Nitrogen 18 mg/dL (7-17); Calcium 8.8 mg/dL (8.4-10.2); Carbon Dioxide 25 mmol/L (22-30); Chloride 105 mmol/L (98-107); Glucose 152 mg/dL (74-99); Potassium 4.4 mmol/L (3.5-5.1); Sodium 143 mmol/L (137-145)
--- NOTE | 2017-09-26 11:13 | P.PN ---
Subjective Progress Note Date: 09/26/17 Anthony Llamas is a 67-year-old female patient of [facility] who presented to [facility] emergency room with a chief complaint of worsening shortness of breath, patient was having wheezing and cough for the last several days she used her inhaler without significant relief her symptoms were worsening and she decided to come to emergency room. Patient has a known history of asthma, she was also recently diagnosed with COPD, she is a smoker, she states she never smoked as a teenager she started smoking when she started working, she quit smoking when she was having her children, she was smoking up until a few days ago, she has history of chronic sinusitis was previous history of sinus surgery, she denies any previous history of pneumonia. Patient denies any other medical problems she denies having any history of cardiac disease, no history of CHF or coronary artery disease. On 09/24/2017 patient is alert and oriented 3 in no apparent distress she reports improvement in her shortness of breath and cough, she is complaining of feeling jittery and unable to sleep, she denies any fever or chills no headache no dizziness no chest pain no nausea or vomiting no abdominal pain no diarrhea and no urinary symptoms. 09/25/2017 patient is having improvement in her shortness of breath and cough. She is still having some shortness of breath with activity. She did have a coughing jag through the evening. Denies any chest pain. Denies any nausea or vomiting. Reports having bowel movements. Denies any difficulty urinating. She is still requiring oxygen 2 L at 93% 09/26/2017 patient is showing some improvement in her shortness of breath. Still having some some shortness of breath with activity. She is currently on room air. She is able to ambulate on room air at 97%. Patient still having coughing jags during the evening. Also feels that her cough is starting to loosen up. Denies any chest pain. Denies any nausea or vomiting. Denies any bowel movement changes or urinary symptoms. Patient does not feel ready for discharge yet Objective - Vital Signs Vital signs: Vital Signs Temp 98 F 09/26/17 07:12 Pulse 91 09/26/17 11:07 Resp 16 09/26/17 11:07 BP 139/67 09/26/17 07:12 Pulse Ox 95 09/26/17 11:07 Intake & Output 09/25/17 09/26/17 09/26/17 18:59 06:59 18:59 Other: Voiding Method Toilet Toilet Toilet # Voids 3 1 - Exam Head normocephalic Neck supple Lungs lungs are tight diminished improvement in wheezing Heart regular rate and rhythm S1-S2, no rub or gallop Abdomen is soft nontender nondistended positive bowel sounds no hepatosplenomegaly Extremities no edema Neuro alert and orientated to 3 - Labs CBC & Chem 7: 09/26/17 07:01 09/26/17 07:01 Labs: Abnormal Lab Results - Last 24 Hours (Table) 09/25/17 09/25/17 09/25/17 Range/Units 11:08 17:16 20:00 WBC (3.8-10.6) k/uL Neutrophils # (1.3-7.7) k/uL BUN (7-17) mg/dL Glucose (74-99) mg/dL POC Glucose (mg/dL) 149 H 130 H 250 H (75-99) mg/dL 09/26/17 09/26/17 09/26/17 Range/Units 07:01 07:01 07:13 WBC 14.1 H (3.8-10.6) k/uL Neutrophils # 12.6 H (1.3-7.7) k/uL BUN 18 H (7-17) mg/dL Glucose 152 H (74-99) mg/dL POC Glucose (mg/dL) 147 H (75-99) mg/dL Microbiology - Last 24 Hours (Table) 09/23/17 07:51 Blood Culture - Preliminary Blood No Growth after 72 hours Assessment and Plan Assessment: #1 acute COPD exacerbation: Continue IV Solu-Medrol. Pulmonary service following they have added Pulmicort and Perforomist nebulizer treatments. Continue duo nebs. Pulmonary service is following. Appreciate their input. Patient is currently off of oxygen. Continue to monitor #2 acute tracheobronchitis: Continue azithromycin. Patient has ALLERGY to penicillin #3 tobacco abuse, patient was counseled to quit #4 leukocytosis likely secondary to steroids #5 underlying history of hyperlipidemia #6 underlying history of depression and anxiety #7 underlying history of hypertension #8 for DVT prophylaxis patient will be started on Lovenox 40 mg subcu, for GI prophylaxis she will be started on Pepcid Encouraged patient to increase activity Anticipate discharge possibly tomorrow. I performed an examination of the patient and discussed their management with the physician Family Independence Case Manager. I have reviewed the Physician Family Independence Case Manager's notes and agree with the documented findings and plan of care
[2017-09-26 11:49] LABS: Glucose,Whole Blood 159 mg/dL (75-99)
[2017-09-26] MEDS: guaiFENesin 600 MG TABLET.ER PO SCH ×2 (13:04→21:07)
--- NOTE | 2017-09-26 14:42 | P.PN ---
Subjective Progress Note Date: 09/26/17 Principal diagnosis: Acute exacerbation of COPD This 67-year-old female patient is being seen in an effort follow-up in regards to her acute COPD exacerbation. She is feeling better. She is less short of breath. Cough has subsided. Less congested than less bronchospastic and less wheezy. As mentioned earlier she is a smoker in she seems to be committed for smoking cessation. She is still on oxygen at 2 L/m nasal cannula with a pulse ox of 93%. She is ambulating. No pleurisy. No hemoptysis. She has history of hayfever and chronic ALLERGIC bronchial asthma at the younger age. Nevertheless his condition seems to be more consistent with COPD. On 09/26/2017 patient seen in follow-up. Reports improvement with dyspnea, less bronchospastic and coughing less. Lung sounds are positive for some residual wheezing, but improved compared to yesterday exam. She is currently on room air with a pulse ox of 95%. Vital signs are stable. Today's labs reveal WBC of 14.1, electrolytes are within normal limits, UN of 18, creatinine 0.59. No acute events overnight. Increase patient's activity as tolerated, continue with current medical treatments, despite further improvement and possible discharge home in next 24 hours. Objective - Vital Signs Vital signs: Vital Signs Temp 98 F 09/26/17 07:12 Pulse 90 09/26/17 11:17 Resp 16 09/26/17 11:17 BP 139/67 09/26/17 07:12 Pulse Ox 95 09/26/17 11:07 Intake & Output 09/25/17 09/26/17 09/26/17 18:59 06:59 18:59 Intake Total 600 Balance 600 Intake: Oral 600 Other: Voiding Method Toilet Toilet Toilet # Voids 3 1 3 - Exam Gen. appearance the patient is calm and comfortable likely distress, obese, able to speak of. This is Head exam was generally normal. There was no scleral icterus or corneal arcus. Mucous membranes were moist. Neck was supple and without jugular venous distension, thyromegaly, or carotid bruits. Carotids were easily palpable bilaterally. There was no adenopathy. The patient is Mallampati class IV is significant crowding of the posterior pharynx Lungs sounds are diminished bilaterally along with some scattered expiratory wheezes. Patient is less bronchospastic on today's exam Cardiac exam revealed the PMI to be normally situated and sized. The rhythm was regular and no extrasystoles were noted during several minutes of auscultation. The first and second heart sounds were normal and physiologic splitting of the second heart sound was noted. There were no murmurs, rubs, clicks, or gallops. Abdominal exam revealed normal bowel sounds. The abdomen was soft, non-tender, and without masses, organomegaly, or appreciable enlargement of the abdominal aorta. Examination of the extremities revealed easily palpable radial, femoral and pedal pulses. There was no cyanosis, clubbing or edema. Examination of the skin revealed no evidence of significant rashes, suspicious appearing nevi or other concerning lesions. Neurologically the patient is awake and alert and there is no focal neurological deficit Psychiatrically the patient has normal mood and affect - Labs CBC & Chem 7: 09/26/17 07:01 09/26/17 07:01 Labs: Abnormal Lab Results - Last 24 Hours (Table) 09/25/17 09/25/17 09/26/17 Range/Units 17:16 20:00 07:01 WBC 14.1 H (3.8-10.6) k/uL Neutrophils # 12.6 H (1.3-7.7) k/uL BUN (7-17) mg/dL Glucose (74-99) mg/dL POC Glucose (mg/dL) 130 H 250 H (75-99) mg/dL 09/26/17 09/26/17 09/26/17 Range/Units 07:01 07:13 11:43 WBC (3.8-10.6) k/uL Neutrophils # (1.3-7.7) k/uL BUN 18 H (7-17) mg/dL Glucose 152 H (74-99) mg/dL POC Glucose (mg/dL) 147 H 159 H (75-99) mg/dL Microbiology - Last 24 Hours (Table) 09/23/17 07:51 Blood Culture - Preliminary Blood No Growth after 72 hours Assessment and Plan Plan: Assessment: 1 acute COPD exacerbation, improving slowly and the patient continues to have some residual cough dyspnea and wheeze 2 acute taken bronchitis with exacerbation of an underlying COPD 3 smoker 4 hyperlipidemia 5 depression 6 anxiety 7 hypertension 8 mild leukocytosis Plan: Continues to improve, continue current medical treatments, continue same dose IV steroids, nebulized bronchodilators, Mucinex. Increase activity as tolerated , to further improvement, and possible discharge home in the next 24 hours I performed a history & physical examination of the patient and discussed their management with my nurse practitioner, Marta Alexander. I reviewed the nurse practitioner's note and agree with the documented findings and plan of care. Lung sounds are positive for scattered end expiratory wheezes. The findings and the impression was discussed with the patient. I attest to the documentation by the nurse practitioner. Time with Patient: Less than 30
[2017-09-26] MEDS: PARoxetine 20 MG TAB PO SCH (15:18)
[2017-09-26] MEDS: LORATADINE 10 MG TAB PO SCH (15:18)
[2017-09-26] MEDS: ASPIRIN 325 MG TAB PO SCH (15:18)
[2017-09-26] MEDS: ATORVASTATIN 80 MG TAB PO SCH (15:18)
[2017-09-26] MEDS: busPIRone HCl 10 MG TAB PO SCH (15:18)
[2017-09-26] MEDS: LISINOPRIL 20 MG TAB PO SCH (15:18)
[2017-09-26] MEDS: amLODIPine 5 MG TAB PO SCH (15:18)
[2017-09-26 17:25] LABS: Glucose,Whole Blood 152 mg/dL (75-99)
[2017-09-26 20:01] LABS: Glucose,Whole Blood 159 mg/dL (75-99)
[2017-09-26] MEDS: ALPRAZolam 0.25 MG TAB PO PRN (21:06)
[2017-09-27] MEDS: methylPREDNISolone SOD SUCCI 125 MG/2 ML VIAL IV SCH ×3 (00:36→11:21)
[2017-09-27 07:34] LABS: Glucose,Whole Blood 149 mg/dL (75-99)
[2017-09-27 07:55] VITALS: BP 145/68; RESP 16; TEMP 97.5
[2017-09-27] MEDS: INSULIN ASPART 100 UNIT/ML 1 ML 10 ML VIAL SQ SCH ×2 (08:01→11:21)
[2017-09-27] MEDS: BUDESONIDE 1 MG/2 ML NEBU INHALATION SCH (08:06)
[2017-09-27] MEDS: IPRATROPIUM-ALBUTEROL 3 ML NEB INHALATION SCH ×3 (08:06→15:26)
[2017-09-27] MEDS: FORMOTEROL FUMARATE 20 MCG/2 ML NEBU INHALATION SCH (08:06)
[2017-09-27] MEDS: guaiFENesin 600 MG TABLET.ER PO SCH (08:33)
[2017-09-27] MEDS: FAMOTIDINE 20 MG TAB PO SCH (08:34)
[2017-09-27] MEDS: ENOXAPARIN 40 MG/0.4 ML SYRINGE SQ SCH (08:34)
[2017-09-27] MEDS: AZITHROMYCIN 500 MG TAB PO SCH (08:34)
[2017-09-27] MEDS: FLUTICASONE 50MCG/SPRAY NASAL 16GM EA NOSTRIL SCH (08:34)
[2017-09-27 09:16] LABS: Basophils % (A) 0 %; Eosinophils # (A) 0.1 k/uL (0-0.7); Eosinophils % (A) 1 %; HCT 41.4 % (34.0-46.0); HGB 13.3 gm/dL (11.4-16.0); Lymphocytes # (A) 0.8 k/uL (1.0-4.8); Lymphocytes % (A) 8 %; MCH 30.5 pg (25.0-35.0); MCHC 32.1 g/dL (31.0-37.0); Mean Platelet Volume 7.3; Monocytes # (A) 0.5 k/uL (0-1.0); Monocytes % (A) 4 %; Neutrophils # (A) 9.6 k/uL (1.3-7.7); Neutrophils % (A) 87 %; Platelet Count 406 k/uL (150-450); RBC 4.36 m/uL (3.80-5.40); RDW 12.5 % (11.5-15.5)
[2017-09-27 09:30] LABS: Anion Gap 13 mmol/L; Blood Urea Nitrogen 16 mg/dL (7-17); Calcium 8.6 mg/dL (8.4-10.2); Carbon Dioxide 25 mmol/L (22-30); Chloride 104 mmol/L (98-107); Glucose 137 mg/dL (74-99); Potassium 4.4 mmol/L (3.5-5.1); Sodium 142 mmol/L (137-145)
[2017-09-27 11:04] LABS: Glucose,Whole Blood 189 mg/dL (75-99)
--- NOTE | 2017-09-27 11:35 | P.DS ---
Providers Date of admission: 09/23/17 09:13 Expected date of discharge: 09/27/17 Attending physician: Jarod Perez Consults: 09/23/17 17:25 Consult Physician Routine Consulting Provider: Jericho Orosco Consult Reason/Comments: asthma/copd Do you want consulting provider notified?: Yes Primary care physician: Radha Watkins [facility] Course: Diagnoses on discharge: #1 acute COPD exacerbation: IV Solu-Medrol will be switched to oral prednisone. Continue with Duo-Neb nebulizer treatments. Pulmonary service is following. Patient was cleared for discharge. #2 acute tracheobronchitis: Continue azithromycin. Patient has ALLERGY to penicillin #3 tobacco abuse, patient was counseled to quit #4 leukocytosis likely secondary to steroids #5 underlying history of hyperlipidemia #6 underlying history of depression and anxiety #7 underlying history of hypertension Hospital course: Anthony Llamas is a 67-year-old female patient of [facility] who presented to [facility] emergency room with a chief complaint of worsening shortness of breath, patient was having wheezing and cough for the last several days she used her inhaler without significant relief her symptoms were worsening and she decided to come to emergency room. Patient has a known history of asthma, she was also recently diagnosed with COPD, she is a smoker, she states she never smoked as a teenager she started smoking when she started working, she quit smoking when she was having her children, she was smoking up until a few days ago, she has history of chronic sinusitis was previous history of sinus surgery, she denies any previous history of pneumonia. Patient denies any other medical problems she denies having any history of cardiac disease, no history of CHF or coronary artery disease. On 09/24/2017 patient is alert and oriented 3 in no apparent distress she reports improvement in her shortness of breath and cough, she is complaining of feeling jittery and unable to sleep, she denies any fever or chills no headache no dizziness no chest pain no nausea or vomiting no abdominal pain no diarrhea and no urinary symptoms. 09/25/2017 patient is having improvement in her shortness of breath and cough. She is still having some shortness of breath with activity. She did have a coughing jag through the evening. Denies any chest pain. Denies any nausea or vomiting. Reports having bowel movements. Denies any difficulty urinating. She is still requiring oxygen 2 L at 93% 09/26/2017 patient is showing some improvement in her shortness of breath. Still having some some shortness of breath with activity. She is currently on room air. She is able to ambulate on room air at 97%. Patient still having coughing jags during the evening. Also feels that her cough is starting to loosen up. Denies any chest pain. Denies any nausea or vomiting. Denies any bowel movement changes or urinary symptoms. Patient does not feel ready for discharge yet. On 09/27/2017 patient is alert and oriented 3 in no apparent distress she has been off oxygen for 24 hours and has been maintaining oxygen saturation above 90 % she is able to ambulate with minimal shortness of breath chest exam reveals a few scattered rhonchi and minimal wheezing patient is feeling better she will be switched to oral prednisone and oral Zithromax and discharged home today follow-up with Dr. Radha Watkins within 1 week and follow-up was Dr. Orosco coffee brewer in the next 1-2 weeks Plan - Discharge Summary Discharge Rx Participant: No New Discharge Prescriptions: New Azithromycin [Zithromax] 500 mg PO DAILY tab Ipratropium-Albuterol Nebulize [Duoneb 0.5 mg-3 mg/3 ml Soln] 3 ml INHALATION RT-QID ampul.neb predniSONE 0 mg PO DIRECTED #30 tab Continue amLODIPine BESYLATE/BENAZEPRIL [Amlodipine-Benazepril 5-20 mg] 1 cap PO DAILY @1600 Aspirin 325 mg PO DAILY@1600 PARoxetine HCL [Paxil] 20 mg PO DAILY@1600 Fluticasone Propionate [Flonase] 2 spray EA NOSTRIL DAILY Albuterol Sulfate [Proair Hfa] 1 - 2 puff INHALATION RT-Q6H PRN PRN Reason: Shortness Of Breath busPIRone HCL 10 mg PO DAILY@1600 Atorvastatin [Lipitor] 80 mg PO DAILY@1600 Loratadine [Claritin] 10 mg PO DAILY@1600 Discharge Medication List Aspirin 325 mg PO DAILY@1600 09/18/13 [History] Fluticasone Propionate [Flonase] 2 spray EA NOSTRIL DAILY 09/18/13 [History] PARoxetine HCL [Paxil] 20 mg PO DAILY@1600 09/18/13 [History] amLODIPine BESYLATE/BENAZEPRIL [Amlodipine-Benazepril 5-20 mg] 1 cap PO DAILY@ 1600 09/18/13 [History] Albuterol Sulfate [Proair Hfa] 1 - 2 puff INHALATION RT-Q6H PRN 09/23/17 [ History] Atorvastatin [Lipitor] 80 mg PO DAILY@1600 09/23/17 [History] Loratadine [Claritin] 10 mg PO DAILY@1600 09/23/17 [History] busPIRone HCL 10 mg PO DAILY@159909/23/17 [History] Azithromycin [Zithromax] 500 mg PO DAILY tab 09/27/17 [Rx] Ipratropium-Albuterol Nebulize [Duoneb 0.5 mg-3 mg/3 ml Soln] 3 ml INHALATION RT -QID ampul.neb 09/27/17 [Rx] predniSONE 0 mg PO DIRECTED #30 tab 09/27/17 [Rx] Follow up Appointment(s)/Referral(s): Radha Watkins DO [Primary Care Provider] - 10/05/17 9:00 am Maria G Almaazn MD [STAFF PHYSICIAN] - 10/05/17 2:00 pm
--- NOTE | 2017-09-27 13:22 | P.PN ---
Subjective Progress Note Date: 09/27/17 Principal diagnosis: Acute exacerbation of COPD This 67-year-old female patient is being seen in an effort follow-up in regards to her acute COPD exacerbation. She is feeling better. She is less short of breath. Cough has subsided. Less congested than less bronchospastic and less wheezy. As mentioned earlier she is a smoker in she seems to be committed for smoking cessation. She is still on oxygen at 2 L/m nasal cannula with a pulse ox of 93%. She is ambulating. No pleurisy. No hemoptysis. She has history of hayfever and chronic ALLERGIC bronchial asthma at the younger age. Nevertheless his condition seems to be more consistent with COPD. On 09/26/2017 patient seen in follow-up. Reports improvement with dyspnea, less bronchospastic and coughing less. Lung sounds are positive for some residual wheezing, but improved compared to yesterday exam. She is currently on room air with a pulse ox of 95%. Vital signs are stable. Today's labs reveal WBC of 14.1, electrolytes are within normal limits, UN of 18, creatinine 0.59. No acute events overnight. Increase patient's activity as tolerated, continue with current medical treatments, despite further improvement and possible discharge home in next 24 hours. On 09/27/2017 patient seen in follow-up. Denies to improve, less dyspneic, less wheezy, less congested on today's exam. She is on room air, with a pulse ox of 93. Afebrile, vital signs are stable, today's lab work shows WBC of 11.0 , electrolytes and renal profile are within normal limits. She has been treated with IV steroids, nebulized bronchodilators and oral Zithromax, responded favorably to treatments. From pulmonary standpoint she stable for discharge home today, and she can see Dr. Almazan in follow-up Objective - Vital Signs Vital signs: Vital Signs Temp 97.5 F L 09/27/17 07:01 Pulse 86 09/27/17 12:15 Resp 16 09/27/17 08:00 BP 145/68 09/27/17 07:01 Pulse Ox 92 L 09/27/17 08:07 Intake & Output 09/26/17 09/27/17 09/27/17 18:59 06:59 18:59 Intake Total 600 360 Balance 600 360 Intake: Oral 600 360 Other: Voiding Method Toilet Toilet Toilet # Voids 3 1 4 - Exam Gen. appearance the patient is calm and comfortable likely distress, obese, able to speak of. This is Head exam was generally normal. There was no scleral icterus or corneal arcus. Mucous membranes were moist. Neck was supple and without jugular venous distension, thyromegaly, or carotid bruits. Carotids were easily palpable bilaterally. There was no adenopathy. The patient is Mallampati class IV is significant crowding of the posterior pharynx Lungs sounds are diminished bilaterally along with some scattered expiratory wheezes. Less wheezy, less congested on today's exam, moving good air Cardiac exam revealed the PMI to be normally situated and sized. The rhythm was regular and no extrasystoles were noted during several minutes of auscultation. The first and second heart sounds were normal and physiologic splitting of the second heart sound was noted. There were no murmurs, rubs, clicks, or gallops. Abdominal exam revealed normal bowel sounds. The abdomen was soft, non-tender, and without masses, organomegaly, or appreciable enlargement of the abdominal aorta. Examination of the extremities revealed easily palpable radial, femoral and pedal pulses. There was no cyanosis, clubbing or edema. Examination of the skin revealed no evidence of significant rashes, suspicious appearing nevi or other concerning lesions. Neurologically the patient is awake and alert and there is no focal neurological deficit Psychiatrically the patient has normal mood and affect - Labs CBC & Chem 7: 09/27/17 07:44 09/27/17 07:44 Labs: Abnormal Lab Results - Last 24 Hours (Table) 09/26/17 09/26/17 09/27/17 Range/Units 17:23 20:00 07:02 WBC (3.8-10.6) k/uL Neutrophils # (1.3-7.7) k/uL Lymphocytes # (1.0-4.8) k/uL Glucose (74-99) mg/dL POC Glucose (mg/dL) 152 H 159 H 149 H (75-99) mg/dL 09/27/17 09/27/17 09/27/17 Range/Units 07:44 07:44 11:01 WBC 11.0 H (3.8-10.6) k/uL Neutrophils # 9.6 H (1.3-7.7) k/uL Lymphocytes # 0.8 L (1.0-4.8) k/uL Glucose 137 H (74-99) mg/dL POC Glucose (mg/dL) 189 H (75-99) mg/dL Microbiology - Last 24 Hours (Table) 09/23/17 07:51 Blood Culture - Preliminary Blood No Growth after 96 hours Assessment and Plan Plan: Assessment: 1 acute COPD exacerbation, improving slowly and the patient continues to have some residual cough dyspnea and wheeze 2 acute tracheobronchitis with exacerbation of an underlying COPD 3 smoker 4 hyperlipidemia 5 depression 6 anxiety 7 hypertension 8 mild leukocytosis Plan: Patient continues to improve, less dyspneic, less wheezy and congested. Tolerating ambulation, vital signs are stable. Patient is stable for discharge home today. Follow-up with Dr. Almazan in the office in one week I performed a history & physical examination of the patient and discussed their management with my nurse practitioner, Marta Alexander. I reviewed the nurse practitioner's note and agree with the documented findings and plan of care. Lung sounds are positive a few scattered wheezes and rhonchi. The findings and the impression was discussed with the patient. I attest to the documentation by the nurse practitioner. Time with Patient: Less than 30
[2017-09-27] MEDS: ATORVASTATIN 80 MG TAB PO SCH (15:31)
[2017-09-27] MEDS: amLODIPine 5 MG TAB PO SCH (15:31)
[2017-09-27] MEDS: busPIRone HCl 10 MG TAB PO SCH (15:31)
[2017-09-27] MEDS: PARoxetine 20 MG TAB PO SCH (15:32)
[2017-09-27] MEDS: LORATADINE 10 MG TAB PO SCH (15:32)
[2017-09-27] MEDS: LISINOPRIL 20 MG TAB PO SCH (15:32)
[2017-09-27 15:37] VITALS: PULSE 86
== END 2017-09-27 15:45 | disposition home or self-care (01) | DRG 191 ==
LOC: EC 07:13 → 5MS5E 09:13
PROVIDERS: ADMIT Internal Medicine; ATTEND Internal Medicine
DX: J44.1 Chronic obstructive pulmonary disease with (acute) exacerbation (principal); J45.901 Unspecified asthma with (acute) exacerbation; J44.0 Chronic obstructive pulmonary disease with (acute) lower respiratory infection; J20.9 Acute bronchitis, unspecified; E78.5 Hyperlipidemia, unspecified; F41.9 Anxiety disorder, unspecified; I65.29 Occlusion and stenosis of unspecified carotid artery; F17.200 Nicotine dependence, unspecified, uncomplicated; F32.9 Major depressive disorder, single episode, unspecified; R09.02 Hypoxemia; T38.0X5A Adverse effect of glucocorticoids and synthetic analogues, initial encounter; I11.9 Hypertensive heart disease without heart failure; Z88.0 Allergy status to penicillin; Z88.2 Allergy status to sulfonamides; Z91.040 Latex allergy status; Z91.018 Allergy to other foods; Z79.899 Other long term (current) drug therapy; Z79.82 Long term (current) use of aspirin; Z82.49 Family history of ischemic heart disease and other diseases of the circulatory system; Z90.49 Acquired absence of other specified parts of digestive tract; Z85.3 Personal history of malignant neoplasm of breast; Z87.01 Personal history of pneumonia (recurrent)
CPT/HCPCS: 36415; 71046; 80048; 80053; 82550; 82553; 83735; 84484; 85025; 85610; 85730; 87040; 93005; 94640; 94760; 96361; 96374; 96375; 99291

== ENCOUNTER → 2021-06-18 | Outpatient (CLI) | payer MEDICARE, BC ==
--- NOTE | 2021-06-19 14:00 | ECHOF ---
Referral Reason:R01.1 Murmur MEASUREMENTS -------- HEIGHT: 160.0 cm WEIGHT: 98.9 kg BP: RVIDd: 2.8 cm (< 3.3) IVSd: 1.6 cm (0.6 - 1.1) LVIDd: 3.5 cm (3.9 - 5.3) LVPWd: 1.7 cm (0.6 - 1.1) IVSs: 2.0 cm LVIDs: 2.4 cm LVPWs: 1.9 cm LAESV Index (A-L): 13.93 ml/m Ao Diam: 3.1 cm (2.0 - 3.7) AV Cusp: 1.6 cm (1.5 - 2.6) LA Diam: 3.2 cm (2.7 - 3.8) MV EXCURSION: 17.874 mm (> 18.000) MV EF SLOPE: 40 mm/s (70 - 150) EPSS: 0.7 cm MV E Andrés: 0.68 m/s MV DecT: 244 ms MV A Andrés: 1.08 m/s MV E/A Ratio: 0.63 AV maxP.57 mmHg AV meanP.84 mmHg RAP: 5.00 mmHg RVSP: 23.03 mmHg FINDINGS -------- Sinus rhythm. This was a technically adequate study. The left ventricular size is normal. There is moderate concentric left ventricular hypertrophy. O verall left ventricular systolic function is normal with, an EF between 55 - 60 %. The right ventricle is normal in size. Normal LA size by volume 22+/-6 ml/m2. The right atrial size is normal. Interatrial and interventricular septum intact. There is no evidence of aortic regurgitation. There is mild aortic stenosis present. The maximum velocity across the aortic valve is 2.83m/s. Peak/mean gradient across the Aortic Valve is 32.57mmH g / 16.84mmHg. Mild mitral regurgitation is present. Mild tricuspid regurgitation present. There is no evidence of pulmonary hypertension. The right v entricular systolic pressure, as measured by Doppler, is 23.03mmHg. There is no pulmonic regurgitation present. The aortic root size is normal. IVC Not well visulized. There is no pericardial effusion. CONCLUSIONS -------- 1. The left ventricular size is normal. 2. There is moderate concentric left ventricular hypertrophy. 3. Overall left ventricular systolic function is normal with, an EF between 55 - 60 %. 4. There is mild aortic stenosis present. 5. Mild mitral regurgitation is present. 6. Mild tricuspid regurgitation present. GAS METER CHECKER: Ava Capone RDCS
== END | disposition home or self-care (01) ==
LOC: RADECHMAIN 11:16
PROVIDERS: ATTEND Internal Medicine Geriatric Medicine
DX: I08.3 Combined rheumatic disorders of mitral, aortic and tricuspid valves (principal)
CPT/HCPCS: 93306